=== PATIENT | male | born 1940 | race Caucasian/White ===

== ENCOUNTER → 2017-03-10 | Outpatient (CLI) | payer MEDICARE, BC ==
[~2017-03-10] MED LIST: ALLO100T PO; Albuterol PO; BUDE6HFA INHALATION; CELE200C PO; CENTRUM SILVER 50+ PO; EZET1TAB40 PO; MONT10TA21 PO; MOVE FREE ULTR1 EACH PO; OLME20TA20 PO; RIVA10TA PO; TAMS0.4C2 PO
--- NOTE | 2017-03-11 01:28 | HKNOTE ---
DATE OF SERVICE: 03/10/2017 The patient underwent a left knee replacement on 12/23/2015. He is very pleased with the results of his surgery except that he has a great deal of crepitus in the knee. He also says that the knee "l ocks up" when he climbs stairs, or when getting up from a chair. There has been no history of injur y to the knee since his operation. PHYSICAL EXAMINATION: GENERAL: A very fit-looking, 76-year-old male. VITAL SIGNS: Height 5 foot 9 inches, weight 209 pounds, blood pressure 140/80, temperature 98.9. RIGHT KNEE: Examination of the right knee reveals scar of previous knee replacement. Severe crepit us in the knee on putting it through range of motion. The tissues near the patellar seem to catch a s he flexes the knee from a fully-extended position. No external sign of infection or inflammation. IMAGING: Plain x-rays of the left knee obtained today at the [facility] (3 views ) showed all components to be well attached to the bone and well aligned. DISCUSSION: The patient is advised that I have seen these symptoms on many occasions, but probably not quite as severe as he. Also, I have never seen the patellar "catch" in this fashion. It seems to be quite inconveniencing for the knee to do this. It is certainly not consistent with a good out come on a knee replacement operation. He is advised that I have had 3 or 4 patients who have had ar throscopic removal of scar tissue and have improved. I sent to former partner of [facility], Dr. De La Cruz, who is a sports commentator and a master at arthroscopy. I will be referring Mr. Harvey to Dr. De La Cruz. The patient has a cabin in [place] and he is going there in the second week of March. He w ill not return until towards the end of the year. I recommended that he at least see Dr. De La Cruz bef ore he leaves. The patient has an appointment with Dr. De La Cruz for this coming Tuesday, next week. H e will work out the details and the logistics of the surgery with Dr. De La Cruz. Dictated By: ZOYA IRBY/GABRIEL Conf#: [id number] DID#: [id number]
--- NOTE | 2017-03-11 01:37 | HKNOTE ---
DATE OF SERVICE: 03/10/2017 Dear Kee: I am referring to Golden Harvey, who is a 76-year-old male who underwent a very successful left knee replacement which was performed by me on 12/23/2015. 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 I have found the condition to be fairly uncommon, but in this man's case, he has even more uncommon symptom, and rae t is that the patella seems to be catching on the anterior femoral flange. He most certainly needs to have an arthroscopic excision of the scar tissue. I would greatly apprec iate if you could give a followup on this patient, to let me know how well the procedure went, and i f they gave him good relief. He would also appreciate it if you could let me have 1 or 2 good photographs of the appearance of hi s scar tissue during the arthroscopy. He is scheduled to see you next Tuesday, after you return from your vacation. With warmest regards, Dictated By: ZOYA IRBY/GABRIEL Conf#: [id number] DID#: [id number] CC: SHAKEEL LANG MD;*EndCC*
== END | disposition home or self-care (01) ==
LOC: HKI 13:37
DX: T84.82XS Fibrosis due to internal orthopedic prosthetic devices, implants and grafts, sequela (principal); Y83.8 Other surgical procedures as the cause of abnormal reaction of the patient, or of later complication, without mention of misadventure at the time of the procedure; Z96.652 Presence of left artificial knee joint
CPT/HCPCS: G0463